=== PATIENT | female | born 2000 | race Hispanic/Latino ===

== ENCOUNTER 2023-04-29 02:16 | Inpatient (IN) | payer OTHER ==
[2023-04-29 02:57] VITALS: BMI 35.5
[2023-04-29 03:04] LABS: Fetal Membranes Rupture RUPTURE DETECTED (No Rupture)
[2023-04-29 04:21] LABS: Hematocrit 31.8 % (34.9-44.5); Hemoglobin 10.6 g/dL (12.0-15.5); Mean Corpuscular HGB CONC 33.3 g/dL (32.0-36.0); Mean Corpuscular Hemoglobin 27.4 pg (27.0-33.0); Mean Corpuscular Volume 82.2 fl (81.6-98.3); Mean Platelet Volume 11.8 fl (7.4-10.4); Platelet Count 263 10x3/uL (150-450); RBC Distribution Width 13.5 % (11.5-14.5); Red Blood Cell (RBC) Count 3.87 10x6/uL (3.90-5.03); White Blood Cell (WBC) Count 8.7 10x3/uL (3.5-10.5)
[2023-04-29] MEDS ORDERED: fentaNYL 50 mcg/mL 1 mL Vial SLOW IVP PRN ×2 (04:39→18:05)
[2023-04-29] MEDS ORDERED: Ondansetron PF 4 MG/2 ML Vial IVP PRN ×5 (04:45→20:04)
[2023-04-29] MEDS ORDERED: hydrALAZINE 20 MG/ML VIAL SLOW IVP PRN ×2 (04:45→20:04)
[2023-04-29] MEDS ORDERED: Lactated Ringer's 1,000 ML IV SCH ×2 (04:45)
[2023-04-29] MEDS ORDERED: Carboprost 250 MCG/ML AMP IM PRN (04:45)
[2023-04-29] MEDS ORDERED: Diphenoxylate HCl/Atropine Tablet PO PRN ×2 (04:45)
[2023-04-29] MEDS ORDERED: Oxytocin 30 units/NS 500 ML 500 ML IVPB SCH (04:45)
[2023-04-29] MEDS ORDERED: Ibuprofen 800 MG TAB PO PRN (04:45)
[2023-04-29] MEDS ORDERED: Misoprostol 200 MCG TAB RC PRN (04:45)
[2023-04-29] MEDS ORDERED: Oxytocin 30 units/NS 500 ML 500 ML IV SCH (04:45)
[2023-04-29] MEDS ORDERED: Lidocaine 1% (PF) 30 ML VIAL SC PRN (04:45)
[2023-04-29] MEDS ORDERED: Methylergonovine 0.2 MG/ML VIAL IM PRN (04:45)
[2023-04-29] MEDS ORDERED: Promethazine HCl 25 MG/ML VIAL IM PRN ×4 (04:45→20:04)
[2023-04-29 04:50] LABS: Syphilis Antibody Nonreactive (Nonreactive); Syphilis Antibody Index 0.82 S/CO (<1.00 Non-Reactive)
[2023-04-29 04:52] LABS: HBSAg Index 0.15 S/CO (0-0.99); Hep B Surf Ag - L&D Non-Reactive S/CO (NonReactive)
[2023-04-29] MEDS ORDERED: fentaNYL/Ropivacaine Epidural 100 ML ONE (07:27)
[2023-04-29] MEDS ORDERED: Acetaminophen 325 MG TAB PO PRN (09:15)
[2023-04-29] MEDS ORDERED: diphenhydrAMINE 50 MG/ML VIAL IVP PRN ×2 (09:15→18:05)
[2023-04-29] MEDS ORDERED: ePHEDrine Sulfate 50 MG/10 ML VIAL SLOW IVP PRN (09:15)
[2023-04-29] MEDS ORDERED: Moisturizing Cream (Eucerin) 113 GM JAR TOP PRN ×2 (09:15→18:05)
[2023-04-29] MEDS ORDERED: fentaNYL 2 mcg/Ropivacaine 0.2% Epidural 100 ML CADD EPIDURAL SCH (09:15)
[2023-04-29] MEDS ORDERED: Lactated Ringer's 500 ML IV PRN (09:15)
[2023-04-29] MEDS ORDERED: Naloxone HCl 0.4 mg/ml Vial IVP PRN ×4 (09:15→18:05)
[2023-04-29] MEDS ORDERED: Communication Order-Pharmacy FS SCH ×2 (09:15→18:15)
[2023-04-29] MEDS ORDERED: Lidocaine 2% MPF 10 ML AMP (For Epidural Use) ONE (13:53)
[2023-04-29] MEDS ORDERED: Bupivacaine 0.25% HCL 30 ML VIAL ONE (13:53)
[2023-04-29] MEDS ORDERED: CEFAZOLIN 2 GM VIAL ONE (16:49)
[2023-04-29] MEDS ORDERED: Azithromycin 500 MG VIAL ONE (16:50)
[2023-04-29] MEDS ORDERED: Famotidine/PF 20 mg/2ml Vial SLOW IVP PRN (17:00)
[2023-04-29] MEDS ORDERED: Bicitra 30 ML UDCUP PO PRN (17:00)
[2023-04-29] MEDS ORDERED: CEFAZOLIN 2 GM in Sodium Chloride 0.9% 100 ML IVPB SCH (17:00)
[2023-04-29] MEDS ORDERED: Azithromycin 500 MG in Sodium Chloride 0.9% 250 ML 250 ML IVPB SCH (17:00)
[2023-04-29] MEDS ORDERED: Oxytocin 10 UNITS/ML VIAL ONE (17:15)
[2023-04-29] MEDS ORDERED: PHENYLEPHRINE-NS 100 MCG/ML 10 ML SYRINGE ONE ×2 (17:15→17:55)
[2023-04-29] MEDS ORDERED: Phenylephrine 40 MG/NS 250 ML 250 ML ONE (17:16)
[2023-04-29] MEDS ORDERED: Dexmedetomidine 200 MCG/2 ML VIAL ONE (17:30)
[2023-04-29] MEDS ORDERED: Morphine PF 10 MG/10 ML VIAL ONE (17:30)
[2023-04-29] MEDS ORDERED: Ketorolac Tromethamine 30 MG/ML VIAL IVP PRN (18:05)
[2023-04-29] MEDS ORDERED: Naloxone HCl 0.4 mg/ml Vial IV PRN (18:05)
[2023-04-29] MEDS ORDERED: Promethazine HCl 25 MG SUPP PR PRN (18:05)
[2023-04-29] MEDS ORDERED: Meperidine HCl/PF 25 MG/ML VIAL SLOW IVP PRN (18:05)
[2023-04-29] MEDS ORDERED: Ketorolac Tromethamine 30 MG/ML VIAL IVP SCH (18:15)
[2023-04-29] MEDS ORDERED: Boostrix 0.5 ML (Tdap) VIAL (>/=7 yrs of age) IM ONE (20:04)
[2023-04-29] MEDS ORDERED: Bisacodyl 10 MG SUPP PR PRN (20:04)
[2023-04-29] MEDS ORDERED: Lanolin Ointment 7 GM TUBE TOP PRN (20:04)
[2023-04-29] MEDS ORDERED: diphenhydrAMINE 25 MG CAP PO PRN (20:04)
[2023-04-29] MEDS: Ferrous Sulfate 325 MG TAB PO SCH (21:13)
[2023-04-29] MEDS: Docusate 100 MG CAP PO SCH (21:13)
[2023-04-30] MEDS: Ketorolac Tromethamine 30 MG/ML VIAL IVP SCH ×4 (00:09→17:37)
[2023-04-30 04:00] LABS: Hematocrit 27.7 % (34.9-44.5); Hemoglobin 9.1 g/dL (12.0-15.5); Mean Corpuscular HGB CONC 32.9 g/dL (32.0-36.0); Mean Corpuscular Hemoglobin 26.8 pg (27.0-33.0); Mean Corpuscular Volume 81.7 fl (81.6-98.3); Mean Platelet Volume 11.1 fl (7.4-10.4); Platelet Count 203 10x3/uL (150-450); RBC Distribution Width 13.6 % (11.5-14.5); Red Blood Cell (RBC) Count 3.39 10x6/uL (3.90-5.03); White Blood Cell (WBC) Count 10.4 10x3/uL (3.5-10.5)
[2023-04-30] MEDS: Ferrous Sulfate 325 MG TAB PO SCH ×2 (08:40→21:25)
[2023-04-30] MEDS: Docusate 100 MG CAP PO SCH ×2 (08:40→21:25)
[2023-04-30] MEDS: HYDROcodone/Acetaminophen 5/325 mg Tablet PO PRN ×4 (08:41→21:27)
[2023-04-30] MEDS: Prenatal Vitamin 1 TAB PO SCH (08:41)
[2023-04-30] MEDS: Simethicone Chewable 80 MG TAB PO PRN ×3 (11:10→21:27)
[2023-05-01] MEDS: Ibuprofen 800 MG TAB PO SCH ×4 (00:01→22:29)
[2023-05-01] MEDS ORDERED: Ibuprofen 800 MG TAB PO PRN (00:01)
[2023-05-01] MEDS: Simethicone Chewable 80 MG TAB PO PRN ×4 (03:18→20:28)
[2023-05-01] MEDS: HYDROcodone/Acetaminophen 5/325 mg Tablet PO PRN ×4 (03:18→20:28)
[2023-05-01] MEDS: Prenatal Vitamin 1 TAB PO SCH (09:25)
[2023-05-01] MEDS: Docusate 100 MG CAP PO SCH ×2 (09:25→20:28)
[2023-05-01] MEDS: Ferrous Sulfate 325 MG TAB PO SCH ×2 (09:25→20:28)
[2023-05-02] MEDS: Ibuprofen 800 MG TAB PO SCH ×2 (05:54→13:30)
[2023-05-02] MEDS: HYDROcodone/Acetaminophen 5/325 mg Tablet PO PRN ×2 (05:57→09:36)
[2023-05-02 08:09] VITALS: TEMP 97.9
[2023-05-02] MEDS: Simethicone Chewable 80 MG TAB PO PRN ×2 (09:30→13:29)
[2023-05-02] MEDS: Docusate 100 MG CAP PO SCH (09:31)
[2023-05-02] MEDS: Prenatal Vitamin 1 TAB PO SCH (09:31)
[2023-05-02] MEDS: Ferrous Sulfate 325 MG TAB PO SCH (09:31)
[2023-05-02 10:53] VITALS: BP 107/57
== END 2023-05-02 17:00 | disposition home or self-care (01) | DRG 788 ==
LOC: CSHLD/OP 02:16 → CSHLD 03:31 → CSHPP 19:55
PROVIDERS: ADMIT Family Medicine; ATTEND Family Medicine
PROC: 10D00Z1 Extraction of Products of Conception, Low, Open Approach (ICD-10-PCS; principal; 2023-04-29)
PROC: 10H07YZ Insertion of Other Device into Products of Conception, Via Natural or Artificial Opening (ICD-10-PCS; 2023-04-29)
DX: O42.02 Full-term premature rupture of membranes, onset of labor within 24 hours of rupture (principal); Z3A.38 38 weeks gestation of pregnancy; Z37.0 Single live birth; O76 Abnormality in fetal heart rate and rhythm complicating labor and delivery; O34.211 Maternal care for low transverse scar from previous cesarean delivery; O99.893 Other specified diseases and conditions complicating puerperium; N73.6 Female pelvic peritoneal adhesions (postinfective); O61.0 Failed medical induction of labor
CPT/HCPCS: 36415; 51702; 84112; 85027; 86780; 86850; 86900; 86901; 87340; 99285; J1885; J2175; J2274; J2590; J3010; S0020